=== PATIENT | female | born 1965 | race Caucasian/White ===

== ENCOUNTER → 2018-12-09 17:27 | Outpatient (CLI) | payer BC, SELFPAY ==
--- NOTE | 2018-12-09 | IMM_PTH ---
PATIENT: LAMONT JIMENEZ LOC: [facility] U#:[id number] AGE/SX: 60/F ROOM: RE12/09/[address]: Dr. Kathy Campbell MD : 1965 BED: DIS: SPEC #: [id number] RECD: 12/13/18 14:07 STATUS: MINDY REQ #: [id number] KRISTIAN: 12/09/18 00:[address]: Kathy Campbell DEPT: IMMUNOHISTOCHEMISTRY RECD BY: Jillian Calderon ENTERED: 12/13/18 14:14 SP TYPE: IMMUNO OTHR DR: No Primary Care Phys Tissues: A - Thyroid gland, NOS Procedures: CK19 (add) GAL-3 (add) HBME (add) CD56 (initial) PHYSICIAN & INSTITUTION [place] [address] SPECIMEN INFORMATION: Tissue Source: A - Right thyroid Clinical Info: Thyroid nodules Specimen Number: [id number] CPT code: 27395, 05968 x3 METHODOLOGY: Deparaffinized sections of prefer/formalin-fixed tissue or PAP/DQ stained slides are incubated with monoclonal/polyclonal antibodies/oligonucleotide probes. Localization is made via biotin free immunoperoxidase method. Appropriate controls are performed and reacted as expected. Results on target cell population are indicated in the following table: RESULTS: ANTIBODY / CLONE RESULT Block A CD56 (123C3.D5) positive, focal CK19 (A53-B/A2.26) positive HBME1 (HBME-1) positive, focal GAL3 (9C4) negative These tests were developed and their performance characteristics determined by [facility]. They may not have been cleared or approved by the U.S. Food and Drug Administration. The FDA has determined that such clearance or approval is not necessary. INTERPRETATION: A. Right thyroid, FNA: Atypical follicular cells of undetermined significance. SJ:fede 12/14/18 Case has been reviewed in consultation with Dr. Taylor who concurs with the above diagnosis. IDC:[id number]
--- NOTE | 2018-12-09 09:30 | FLU_PTH ---
PATIENT: LAMONT JIMENEZ LOC: [facility] U#:[id number] AGE/SX: 60/F ROOM: RE12/09/[address]: Dr. Kathy Campbell MD : 1965 BED: DIS: SPEC #: [id number] RECD: 12/09/18 17:07 STATUS: MINDY PRABHA #: [id number] KRISTIAN: 12/09/18 09:[address]: Kathy Campbell DEPT: CYTOLOGY RECD BY: Krzysztof Fine ENTERED: 12/12/18 14:37 SP TYPE: Fluid OTHR DR: No Primary Care Phys Tissues: A - Thyroid gland, NOS B - Thyroid gland, NOS C - Thyroid gland, NOS D - Thyroid gland, NOS Procedures: Special Stain Group II Surgery Specimen Level IV Cytospin Fluid Cytology Other HEADER OPERATION: Ultrasound-guided bilateral thyroid fine needle aspiration PRE-OP DIAGNOSIS: Thyroid nodules TISSUE SUBMITTED: A - Right thyroid FNA for cytology, B - Right thyroid slides x8, C - Left thyroid FNA for cytology, D - Left thyroid slides x8 DIAGNOSIS CYTOLOGY A. Right thyroid nodule fluid, FNA (cytospin and cell block): Atypical follicular cells are noted of undetermined significance. See comment. B. Right thyroid nodule, FNA (smears): Atypical follicular cells are noted of undetermined significance. Adequate for evaluation. C. Left thyroid nodule fluid, FNA (cytospin and cell block): Benign follicular cells noted with H?rthle cell features. D. Left thyroid nodule, FNA (smears): Consistent with benign follicular nodule. Adequate for evaluation. See comment. SJ:rg 12/13/18 COMMENT A.Immunohistochemistry ([id number]) supports the above diagnosis. Correlation with clinical, radiologic findings and appropriate follow up are necessary. This case has been reviewed in consultation with Dr. Taylor who concurs with the above diagnosis. CYTOLOGY STUDY Slides are reviewed. CYTOLOGY GROSS A - Received is 25 ml of cloudy patrick fluid labeled with the patient's name and and designated per the requisition as right thyroid. Submitted for cytology preparation including cell block. B - Received are eight smears labeled with the patient's name and designated per the requisition as right thyroid. Submitted for staining. C - Received is 30 ml of cloudy patrick fluid labeled with the patient's name and and designated per the requisition as left thyroid. Submitted for cytology preparation including cell block. D - Received are eight smears labeled with the patient's name and designated per the requisition as left thyroid. Submitted for staining. 12/12/18 TC:5 CPT: 61793 x2, 34358 x2, 14667 x2
== END ==
PROVIDERS: Referring Provider Surgery; Visit Provider Surgery
DX: E04.1 Nontoxic single thyroid nodule (principal)
CPT/HCPCS: 88108; 88161; 88305; 88313; 88341; 88342

== ENCOUNTER 2019-04-03 15:45 | Observation (INO) | payer BC, SELFPAY ==
--- NOTE | 2019-04-02 21:07 | HP.PCM_ITS ---
History and Physical Date of Admission: 04/03/19 History and Physical examination Jeni with findings of thyroid nodules of uncertain behavior She presented with findings of multinodular thyroid and underwent US guided FNA of right and left thyroid nodules 12/09/18 - ? US 12/02/18 was obtained - Thyroid is homogeneous in echotexture. ?Symmetric Doppler signal to both thyroid lobes without hyperemia. Right thyroid lobe: Size: 4.4 x 1.6 x 1.8 cm (cc by AP by transverse) Nodules: Slightly heterogeneous, nearly isoechoic, minimally vascular 1.5 x 1.6 x 1.3 cm lower pole nodule corresponds to site of patient concern. Left thyroid lobe: Size: 3.9 x 1.5 x 1.8 cm (cc by AP by transverse) Nodules: Hypoechoic, vascular 1 x 0.7 x 1 cm upper pole nodule. Isthmus: Size: 0.3 cm (AP) Nodules: None ? Pathology - A. Right thyroid nodule fluid, FNA (cytospin and cell block): Atypical follicular cells are noted of undetermined significance. B. Right thyroid nodule, FNA (smears): Atypical follicular cells are noted of undetermined significance. Adequate for evaluation. C. Left thyroid nodule fluid, FNA (cytospin and cell block): Benign follicular cells noted with H?rthle cell features. D. Left thyroid nodule, FNA (smears): Consistent with benign follicular nodule. Adequate for evaluation. ? Complains of lump in throat for the past 2 months. Denies new onset hoarseness. States that she has difficulty swallowing occasionally, such as pills. Gets stuck in throat - occurring for the past 1 1/2 months. Denies history of thyroiditis. Denies radiation exposure. Sister had thyroid cancer, mother had surgery for what sounds like goiter ? ? PAST MEDICAL HISTORY ? Agitation 09/22/2017 ? Essential hypertension 05/06/2017 ? Family history of thyroid disease 11/25/2018 ? DEE (generalized anxiety disorder) 09/22/2017 ? Multiple thyroid nodules 12/01/2018 ? US 11/2018 ? PAST SURGICAL HISTORY ? COLONOSCOP W/ OR W/O [facility] ? 09/30/2017 ? Colonoscopy ? PAST SURGICAL HISTORY OF ? 2012 ? Hysterectomy, fibroids ? PAST SURGICAL HISTORY OF ? ? ? lipoma of back ? PAST SURGICAL HISTORY OF ? ? ? time one ? ? Current Outpatient Prescriptions: losartan (COZAAR) 100 mg tablet Take 1 tablet by mouth twice daily. sertraline (ZOLOFT) 100 mg tablet Take 1 tablet by mouth once daily. take one tablet by mouth daily carvedilol (COREG) 3.125 mg tablet Take 1 tablet by mouth twice daily with meals. fluconazole (DIFLUCAN) 150 mg tablet 1 tab by mouth every other day for 3 doses (Patient not taking: Reported on 12/09/2018 ? ? ALLERGIES: Latex; Sulfa (Sulfonamide Antibiotics); Pavel Inhibitors ? PERSONAL HISTORY: Social History Marital status: Spouse name: Years of education: Number of children: Social History Main Topics Smoking status: Never Smoker Smokeless tobacco: Never Used Alcohol use: No Drug use: No ? FAMILY HISTORY ? Heart Failure Mother ? ? Thyroid Mother ?? removed ? Heart Father ?? ablation for arythmia ? Hypertension Father ? ? Thyroid Sister ?? removed ? ? REVIEW OF SYSTEMS: General: The patient denies fatigue, denies weight loss, denies weight gain, denies feeling hot, and denies feelings of cold. Eyes: The patient denies glaucoma, denies eye injury/surgery, wears glasses or contacts. Ear/Nose/Throat: The patient denies allergies, denies hayfever, denies ear infections, and denies bloody noses. Cardiovascular: The patient denies chest pain, denies heart disease, NOTES high blood pressure,denies cardiac stent, denies prior heart attack, denies irregular heart beat, denies high cholesterol, denies poor circulation, denies heart failure, other cardiac issues, denies claudication, denies cold feet, denies peripheral arterial stent. Respiratory: The patient denies tuberculosis, denies pneumonia, denies frequent cough, denies pulmonary embolism, denies shortness of breath, and gigi es coughing up blood. Gastrointestinal: had colonoscopy done by me in 2017, The patient NOTES difficulty swallowing, NOTES acid reflux, denies ulcers, denies vomiting, denies jaundice/hepatitis, denies gallbladder problems, denies black or tarry stools, NOTES hemorrhoids, denies bleeding from rectum, denies diverticulitis, denies constipation, denies diarrhea, denies loss of stool control, and denies hernias. Kidney/Bladder: The patient denies kidney stones, denies urine infections, and denies bloody urine. Skin: The patient denies a history of skin cancer, denies bleeding/ch anging moles, and denies a history of skin rash. Neurologic: The patient denies a history of epilepsy/convulsions, denies headaches, denies head/spinal injuries, and denies stroke/TIA. Psychiatric: The patient denies psychiatric medications, denies depression, and denies voices, denies substance abuse. Endocrine: The patient denies thyroid disorders, denies diabetes, and denies hormonal problems. Hematologic: The patient denies a history of bruising, denies bleeding, and denies anemia, denies blood clots. Infections: The patient denies a history of measles and mumps, denies rheumatic fever, and denies sexually transmitted diseases. Musculoskeletal: The patient denies back pain/injury, NOTES back problems, NOTES sciatica, NOTES knee/foot trouble, NOTES arthritis, or denies gout. ? PHYSICAL EXAMINATION: General: The patient is 53 year old female, well nourished, well hydrated in no acute distress. The patient is oriented to time, place, and person. VITALS: Blood pressure 182/106, pulse 76, temperature 36.9 ?C (98.4 ?F), temperature source Temporal Artery, weight 93.8 kg (206 lb 12.8 oz). Body mass index is 37.82 kg/m?. Head ? Normocephalic. EOM intact with sclera clear and no icterus noted. Wearing glasses. Mouth with mucus membranes moist. Neck - supple with no jugular venous distention noted. Trachea is midline. No carotid bruits noted. No thyroid enlargement or thyroid nodules detected. No masses noted. Patient points to area of concern as the angle of the SCM and clavicle - this is soft tissue and has no relation to the thyroid gland Lungs ? clear to auscultation. Normal breath sounds. No rales/rhonchi/wheezing noted. No labored breathing noted, such as retractions. Heart ? normal S1 and S2 auscultated. No rubs/clicks/murmurs noted. Regular rate. Abdomen ? soft and benign. Normal bowel sounds Extremities ? no calf tenderness noted. No pitting edema noted. Skin ? normal skin integrity. Lymph ? no cervical adenopathy detected, no supraclavicular adenopathy detected, no axillary adenopathy detected Neurological ? gait normal, no focal deficits noted Psych ? calm and appropriate RADIOLOGIC STUDIES: As Noted ? IMPRESSION: right and left thyroid nodules - uncertain behavior ? PLAN: I have discussed the above with the patient. I have explained the thyroid nodules of uncertain behavior diagnosis. I have recommended right thyroid lobectomy. Patient asks about the opposite side. I have explained to her that removal of the entire thyroid would require patient to be on thyroid medications for the rest of her life. She understands this. However, she is concerned about developing thyroid cancer, as her sister had thyroid cancer. She wants to undergo total thyroidectomy. She understands that she will then need to be on thyroid supplementation for the rest of her life. I have counseled the patient as to the risks of surgery, including but not limited to: infection, bleeding, injury to any blood vessels/nerves, scar tissue, postoperative compression of the trachea from bleeding, injury to the laryngeal nerves and their sequelae, injury to the parathyroid glands and their sequelae, cosmetic deformity, complications of anesthesia, etc. - she understands. The patient wishes to proceed. Also she will stay in the hospital overnight. I have answered all questions to the patient?s satisfaction and the patient has no further questions.
[2019-04-03] VITALS (17 sets, daily range): BP systolic 175–209; BP diastolic 91–110; PULSE 82–116; RESP 16–18; TEMP 36.4–37.3; O2SAT 93–99; BMI 38.1
--- NOTE | 2019-04-03 | IMM_PTH ---
PATIENT: LAMONT JIMENEZ LOC: [facility] U#:[id number] AGE/SX: 53/F ROOM: [facility] RE04/03/[address]: Dr. Kathy Campbell MD : 1965 BED: 1 DIS: 04/04/2019 SPEC #: [id number] RECD: 04/05/19 13:16 STATUS: MINDY REQ #: [id number] KRISTIAN: 04/03/19 00:[address]: Kathy Campbell DEPT: IMMUNOHISTOCHEMISTRY RECD BY: Jillian Calderon ENTERED: 04/05/19 13:18 SP TYPE: IMMUNO OTHR DR: MD Dr. Talon Patel DO Tissues: Thyroid gland, NOS Procedures: HBME (initial) CD56 (add) CK19 (add) GAL-3 (add) HBME (add) PHYSICIAN & INSTITUTION [place] [address] SPECIMEN INFORMATION: Tissue Source: Thyroid, total thyroidectomy Clinical Info: Follicular tumor of thyroid gland Specimen Number: [id number] #6 & 7 CPT code: 16567, 63952 x7 METHODOLOGY: Deparaffinized sections of prefer/formalin-fixed tissue or PAP/DQ stained slides are incubated with monoclonal/polyclonal antibodies/oligonucleotide probes. Localization is made via biotin free immunoperoxidase method. Appropriate controls are performed and reacted as expected. Results on target cell population are indicated in the following table: RESULTS: ANTIBODY / CLONE RESULT Block 6 HBME1 (HBME-1) positive in adenomatoid nodules CK19 (A53-B/A2.26) positive GAL3 (9C4) positive CD56 (123C3.D5) positive Block 7 HBME1 (HBME-1) positive in adenomatoid nodules CK19 (A53-B/A2.26) positive GAL3 (9C4) positive CD56 (123C3.D5) positive These tests were developed and their performance characteristics determined by [facility]. They may not have been cleared or approved by the U.S. Food and Drug Administration. The FDA has determined that such clearance or approval is not necessary. INTERPRETATION: Thyroid, total thyroidectomy: The results of immunohistochemistry support the diagnosis of adenomatoid nodules (nodular goiter). CE:fede 04/14/19
--- NOTE | 2019-04-03 10:29 | EKG12_ITS ---
Test Reason : PRE-OP Blood Pressure : / mmHG Vent. Rate : 073 BPM Atrial Rate : 073 BPM P-R Int : 166 ms QRS Dur : 086 ms QT Int : 410 ms P-R-T Axes : 052 002 -21 degrees QTc Int : 451 ms Normal sinus rhythm Nonspecific T wave abnormality Abnormal ECG Confirmed by CHRIS GENTILE, DEMI ([id number]), editor in chief YA ZAVALA ([id number]) on 04/05/2019 12:52:30 PM Referred By: Kathy Campbell Confirmed By:DEMI PEREZ MD
[2019-04-03] MEDS: Cefazolin 2 GM in 0.9% Normal Saline 100 ML IV (11:40)
--- NOTE | 2019-04-03 11:45 | THYROID_PTH ---
PATIENT: LAMONT JIMENEZ LOC: [facility] U#:[id number] AGE/SX: 53/F ROOM: [facility] RE04/03/[address]: Dr. Kathy Campbell MD : 1965 BED: 1 DIS: 04/04/2019 SPEC #: [id number] RECD: 04/04/19 07:58 STATUS: MINDY RE #: [id number] KRISTIAN: 04/03/19 11:[address]: Kathy Campbell DEPT: SURGICAL PATHOLOGY RECD BY: Ralph Solorio ENTERED: 04/04/19 09:10 SP TYPE: THYROID OTHR DR: MD Dr. 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 Two benign parathyroid glands present. CE:fede 04/05/19 COMMENT Immunohistochemistry ([id number]) supports the above diagnosis. The findings were discussed with Dr. Kathy Campbell on 04/14/19. Please see separate [facility] consultation report ([id number]). MICROSCOPIC DESCRIPTION Slides are reviewed. GROSS DESCRIPTION Received in fixative is one container labeled with the patient's name and designated long suture left lobe and short suture right lobe. The specimen consists of a total thyroidectomy specimen consisting of total thyroid and a few disrupted portions of tissue. The entire specimen weighs 10.6 gm. The specimen is oriented as left lobe - long suture, right lobe - short suture. The right lobe measures 5 x 2 x 1.5 cm and left lobe is partly disrupted and measures 4.5 x 2 x 1 cm and the isthmus measures 0.7 x 0.5 x 0.3 cm. The disrupted fragment of the tissue measures in aggregate 3 x 2 x 0.5 cm. The specimen is inked as follows: posterior surface right lobe, left lobe and isthmus - black, anterior surface right lobe - blue, anterior surface left lobe - green and anterior surface isthmus - yellow. Sections of the right lobe reveal a patrick, solid nodule measuring 1.5 x 1 x 1 cm in the middle portion of the lobe. Sections of the left lobe and isthmus do not reveal any mass lesion. The entire specimen is submitted in 12 cassettes as follows: 1 & 2 - detached fragments of tissue, 3 - isthmus, 4-8 - right lobe (4 containing most superior portion and 8 containing most inferior portion), 9-12 - left lobe (9 containing most superior portion and 12 containing most inferior portion). / SJ:fede 04/04/19 TC: CPT: 83990
--- NOTE | 2019-04-03 15:23 | EKG12_ITS ---
Test Reason : POST OP EKG CHANGES Blood Pressure : / mmHG Vent. Rate : 089 BPM Atrial Rate : 089 BPM P-R Int : 148 ms QRS Dur : 090 ms QT Int : 390 ms P-R-T Axes : 054 015 219 degrees QTc Int : 474 ms Normal sinus rhythm T wave abnormality, consider inferior ischemia T wave abnormality, consider anterolateral ischemia Prolonged QT Abnormal ECG When compared with ECG of 03-APR-2019 10:49, MANUAL COMPARISON REQUIRED, DATA IS UNCONFIRMED Confirmed by CELESTE GENTILE, GOMEZ ([id number]), brands editor YA ZAVALA ([id number]) on 04/11/2019 7:16:49 AM Referred By: Kathy Campbell Confirmed By:MANDO ALONSO MD
[2019-04-03] MEDS: Nitroglycerin Oint 1 INCH PACKET 0.5 INCH TRANSDERM. (15:51)
[2019-04-03] MEDS: Aspirin 81 MG TAB.CHEW 324 MG PO (15:51)
[2019-04-03] MEDS: Nitroglycerin (INPATIENT USE) 0.4 MG TAB.SUBL SUBLINGUAL (15:59)
[2019-04-03] MEDS: Morphine 4 MG/ML Syringe IV (16:02)
--- NOTE | 2019-04-03 16:52 | PCM.OPRPT ---
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 Appropriate time out protocol was followed. She was then placed in the supine position on the Operating Room table. She was then placed under GETA. The patient was then positioned with arms tucked and appropriate padding, with neck extension, and in the slightly reverse Trendelenburg position. The neck and upper chest were then prepped with a sterile surgical skin preparation and appropriate sterile surgical drapes were placed. The landmarks were identified and a low cervical collar incision was made with a 15 blade scalpel and carried down to the subcutaneous tissues using Bovie in the electrocautery mode. The platysma was divided along the incision and then flaps were created superiorly to the cricoid cartilage level and inferiorly to the sternal notch. The fascia overlying the strap muscles was then divided along the midline. The left thyroid gland was approached first. The plane between the thyroid gland anterior and the strap muscles posteriorly was then bluntly dissected. Dissection continued layer by layer to identify the inferior pole vessels of the left thyroid gland. The inferior pole vessels were identified. The vessels were ligated with ligaclips and then transected. Of note, the left thyroid gland was nodular, there was some inflammatory changes, especially noted in the plane between the anterior thyroid gland and the strap muscles. The middle thyroid vein was identified and also ligated with ligaclips and then transected. The inferior pole was then bluntly dissected free and the surrounding investiture. The left lobe of the thyroid thus could be retracted medially. Attention was then directed to the superior pole of the thyroid gland. The superior pole vessels were then ligated adjacent to the thyroid lobe in order to prevent damage to the superior laryngeal nerve. The parathyroid gland was identified and care was taken to preserve the blood supply to the parathyroid gland. The thyroid gland was appearing ischemic and shrunk in size and the gland could be further retracted medially. The recurrent laryngeal nerve was identified. Because of the size of the thyroid gland, the nerve was almost embedded within it and careful dissection was required to prevent any injury to it. It is of note that the thyroid appeared to have slight inflammation consistent with thyroiditis type presentation. Also was noted that the surrounding tissues appeared to be more adherent to the thyroid gland than usual. Once the thyroid tissue was free from the attachments to the trachea with the recurrent laryngeal nerve protected and dissection continued. There was a small tongue of thyroid tissue extended superior along the trachea and this was resected en drew with the left thyroid gland. Attention was now directed to the right thyroid gland. The superior pole vessels were taken were dissected out individually and then ligaclips were placed and then the vessels were transected. The thyroid gland was then rotated medially the middle vein was identified and ligated with ligaclips. The inferior pole was then identified and the vessels were ligated with ligaclips. The recurrent laryngeal nerve was then identified along its course and protected from injury. The superior pole was then retracted inferiorly and the pole vessels were ligated with ligaclips and then transected. The thyroid gland was rotated medially and then dissected off the trachea. This was carefully done to avoid any injury to the recurrent laryngeal nerves. The inferior parathyroid gland and the superior parathyroid glands were identified and also protected. The entire thyroid gland was then from the trachea and thus removed from the neck. Because of the shrunken size of the gland, sutures were placed to dominic the right and the left lobe of the thyroid gland. Hemostasis was carefully controlled with electrocautery avoiding any injury to the recurrent laryngeal nerves and the parathyroid glands. Because there is some bleeding still near the area of the recurrent laryngeal nerve , Surgicel was used for hemostasis. A small 10 [place] drain was then placed in the thyroid bed and brought out vis a separate skin incision. The fascia of the strap muscles was then reapproximated along the midline using Vicryl suture. The platysma muscle was then reapproximated in a transverse fashion using interrupted 2-0 Vicryl suture. The skin incision was then reapproximated using 4-0 Monocryl in a running subcuticular fashion. The drain was brought out through the middle portion of the incision and sutured to the skin using nylon suture. The skin closure was reinforced with Dermibond. She was brought to the Recovery Room in stable condition. - Complications none noted - Admit VTE Documentation VTE Present on Admission: Yes VTE Mechan Device Prophylaxis: SCD's
[2019-04-03] MEDS: Lactated Ringers 1,000 ML 75 ML IV (17:44)
--- NOTE | 2019-04-03 18:13 | ECHOD_ITS ---
Reason For Study: Abn EKG Procedure This was a 2D Doppler, Color Flow transthoracic echocardiogram. The exam was of adequate technical quality. Exam performed portable in patient room. Left Ventricle Normal LV size. Mild concentric left ventricular hypertrophy. Left ventricular systolic function is normal. The estimated ejection fraction is 65 %. There is evidence of diastolic dysfunction. No regional wall motion abnormalities noted. Right Ventricle Normal RV size. Normal systolic function. Atria Mild to moderate left atrial enlargement. Normal right atrium. No doppler evidence for ASD. Mitral Valve There is no mitral annular calcification. Normal mitral valve. Mild (1+) mitral valve insufficiency. Tricuspid Valve Normal tricuspid valve. Trivial tricuspid valve insufficiency. Right ventricular systolic pressure estimated to be 22 mmHg. Aortic Valve Trisinus/trileaflet aortic valve. Normal aortic valve. Pulmonic Valve The pulmonic valve is not well visualized. Great Vessels Normal sized aortic root. Pericardium/Pleural No pericardial effusion. MMode/2D Measurements & Calculations LVIDd: 4.2 cm IVSd: 1.3 cm Ao root diam: 3.0 cm LVIDs: 2.1 cm LVPWd: 1.3 cm RVDd: 3.6 cm FS: 49.9 % LAV(MOD-bp): 69.1 ml LA A4 area: 24.5 cm2 LA dimension(2D): 4.2 cm LAV(MOD-bp) Indexed: 35.5 ml/m2 LAV(MOD-sp2): 54.9 ml LAV(MOD-sp4): 82.2 ml RA A4 area: 12.4 cm2 Doppler Measurements & Calculations MV E max gaetano: 94.0 cm/sec Lat Peak E' Gaetano: 6.9 cm/sec Med Peak E' Gaetano: 9.3 cm/sec MV A max gaetano: 92.4 cm/sec E/E' lat: 13.7 E/E' med: 10.1 MV E/A: 1.0 Ao V2 max: 171.2 cm/sec LV V1 max: 150.0 cm/sec PA V2 max: 115.4 cm/sec Ao max P.7 mmHg LV V1 max P.0 mmHg TR max gaetano: 218.4 cm/sec TR max P.1 mmHg Interpretation Summary Left ventricular systolic function is normal. The estimated ejection fraction is 65 %. Mild concentric left ventricular hypertrophy. Mild to moderate left atrial enlargement. Mild (1+) mitral valve insufficiency. Trivial tricuspid valve insufficiency. Right ventricular systolic pressure estimated to be 22 mmHg. There is evidence of diastolic dysfunction. Ordering Physician: Talon Bob Referring Physician: Nazario Barrios Performed By: Naomie Powell RDCS
[2019-04-03] MEDS: Ibuprofen 400 MG Tablet PO (18:19)
--- NOTE | 2019-04-03 18:59 | PCM.PROGNOTE ---
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 Patient's medical problems include hypertension which according to the patient has been poorly controlled recently. Following the patient's thyroidectomy today, an EKG was obtained which showed T wave inversions in leads V3 through V6 and in leads I and II. Patient denies any chest pain, she denies any shortness of breath. Patient states that she was supposed to follow-up last Wednesday with her PCP for possible readjustment of her blood pressure medication but forgot the appointment and did not go. She states that before surgery today, it was noted her blood pressure was elevated. Presently postop patient's systolic blood pressure is around 200, again patient is asymptomatic and has no complaints of any chest pain, nausea, shortness of breath, or headache. - Physical Exam General: Alert, Oriented x3, Cooperative, No apparent distress, Well developed HEENT: Atraumatic, PERRLA, EOMI, Normocephalic Oral: Moist Mucosa Lungs: Clear to auscultation, Normal air movement, No rhonchi, No wheeze, No rales Cardiovascular: Regular rate, Regular Rhythm, Normal S1, Normal S2, No murmurs, No Ectopic Activity, PMI Normal, No rub noted, No Gallop Abdomen: Bowel Sounds Present, Soft, Non Tender, Non-Distended, No hernias noted Extremities: No clubbing, No cyanosis, No edema, Capillary Refill Less than 3 Seconds Skin: No rashes, No breakdown Musculoskeletal: No Tenderness to Palpation of Joints or Extremities Neurological: Cranial nerves II-XII grossly intact, Neuro grossly intact, Sensory exam intact to light touch and pain, Coordination normal Psych/Mental Status: Normal Affect, Appropriate, Alert and oriented to time, place, person, mood and affect Vital Signs Temp Pulse Resp BP Pulse Ox 99.2 F H 106 H 16 209/105 H 93 04/03/19 17:42 04/03/19 17:42 04/03/19 17:42 04/03/19 17:42 04/03/19 17:42 Oxygen Flow Rate (L/min) 2 Oxygen Delivery Method Room Air Weight: 94.6 kg Body Mass Index (BMI) 38.1 Intake and Output for Last 24 Hours 04/01/19 04/02/19 04/03/19 23:59 23:59 23:59 Intake Total 1400 / 1400 Output Total 300 / 300 Balance 1100 / 1100 Laboratory Tests Past 24 Hrs 04/03/19 16:09 Troponin I < 0.015 Medical Necessity - Tobacco Use Smoking Status: Never smoker Tobacco Use: Non-smoker Assessment/Plan #1 inferior and lateral wall T wave inversions-significance is unknown at this time, patient will have a repeat EKG tomorrow morning and her cardiac enzymes will be cycled. Her first troponin was unremarkable. Patient has no history of cardiac disease, she has no family history of occlusive coronary disease, she has no history of diabetes or hyperlipidemia. Her only risk factor seems to be hypertension. I have decided to also order an echocardiogram for tomorrow. #2 uncontrolled hypertension-I have decided to give the patient a one-time dose of Norvasc this evening, she is currently on losartan 100 mg twice daily and Coreg 3.125 mg twice daily as an outpatient-I have decided to increase her Coreg to 12.5 mg twice daily. 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 It is possible that Norvasc may have to be added to her home-going medications tomorrow as well as her increased dose of carvedilol if her blood pressure does not improve. Hospitalist service will follow in the care of this patient. Code Visit Inpatient E&M: 92300 Subs Hosp L3
[2019-04-03] MEDS: amLODIPine 5 MG Tablet PO (19:06)
[2019-04-03] MEDS: Carvedilol 12.5 MG Tablet PO (22:36)
[2019-04-03] MEDS: Losartan Potassium 100 MG Tablet PO (22:36)
[2019-04-03] MEDS: Acetaminophen 325 MG Tablet 650 MG PO (22:41)
[2019-04-04] VITALS (9 sets, daily range): BP systolic 153–186; BP diastolic 70–100; PULSE 78–102; RESP 14–18; TEMP 36.7–37.3; O2SAT 94–95
[2019-04-04] MEDS: Lactated Ringers 1,000 ML 75 ML IV (00:11)
[2019-04-04] MEDS: Acetaminophen 325 MG Tablet 650 MG PO (03:50)
--- NOTE | 2019-04-04 05:55 | EKG12_ITS ---
Test Reason : AM EKG Blood Pressure : / mmHG Vent. Rate : 094 BPM Atrial Rate : 094 BPM P-R Int : 150 ms QRS Dur : 088 ms QT Int : 370 ms P-R-T Axes : 061 020 051 degrees QTc Int : 462 ms Normal sinus rhythm Nonspecific T wave abnormality Prolonged QT Abnormal ECG When compared with ECG of 03-APR-2019 15:40, MANUAL COMPARISON REQUIRED, DATA IS UNCONFIRMED Confirmed by CELESTE GENTILE, GOMEZ ([id number]), video effects editor YA ZAVALA ([id number]) on 04/11/2019 6:57:15 AM Referred By: Kathy Campbell Confirmed By:MANDO ALONSO MD
--- NOTE | 2019-04-04 07:13 | PCM.PN.SRG ---
Subjective: Patient feeling well, has tenderness in the area but does not want to take narcotics Despite order for drain to be changed - it was not done, patient states that the nurses told her that she had never seen a drain like this before and didn't know how to change it. Also, despite serum calcium being ordered this morning, it was not done - Physical Exam General: Alert, Oriented x3 HEENT: Atraumatic Oral: Moist Mucosa Neck: Supple, - - Dressing intact, slight swelling, no erythema, drainage output when I changed the tubing - about 15 ml - serosanguinous Vital Signs Temp Pulse Resp BP Pulse Ox 98.7 F 92 18 162/90 H 94 04/04/19 03:40 04/04/19 03:40 04/04/19 03:40 04/04/19 03:40 04/04/19 03:40 Oxygen Flow Rate (L/min) 2 Oxygen Delivery Method Room Air Weight: 94.6 kg Body Mass Index (BMI) 38.1 Intake and Output for Last 24 Hours 04/02/19 04/03/19 04/04/19 23:59 23:59 23:59 Intake Total 1400 / 1400 1967 Output Total 300 / 300 Balance 1100 / 1100 1967 Laboratory Tests Past 24 Hrs 04/03/19 04/03/19 04/03/19 16:09 19:20 22:05 Troponin I < 0.015 < 0.015 < 0.015 Medical Necessity - Tobacco Use Smoking Status: Never smoker Tobacco Use: Non-smoker Assessment/Plan Impression: status post total thyroidectomy Plan: Will d/c to home, when cleared by internal medicine - patient with elevated blood pressure, EKG changes - ECHO pending start levothyroxine and calcium
--- NOTE | 2019-04-04 07:18 | PCM.DC.GS ---
Discharge Diet: No Restrictions Discharge Activity: Return to Normal Activity, May not drive while taking narcotic pain medications. Call your doctor if your incision/area has: Continuous Slow Oozing, Foul Smelling Discharge Call your doctor if you observe: Fever of 101 or Higher Additional Dressing/Incision Instructions:: Leave dressing in place. Change as instructed prn. sponge bathe only. change drain as instructed twice a day and prn Allergies/Adverse Reactions: Allergies latex Allergy (Verified 03/27/19 09:10) Rash Sulfa (Sulfonamide Antibiotics) Allergy (Verified 03/27/19 09:10) Hives lisinopril Adverse Reaction (Verified 03/27/19 09:10) Other COUGH Medications to take at Discharge Carvedilol [Coreg] 3.125 mg PO BID 03/27/19 Losartan Potassium [Cozaar] 100 mg PO BID 03/27/19 Sertraline HCl [Zoloft] 100 mg PO DAILY 03/27/19 Hydrocodone/Acetaminophen [Victoria 5-325 Tablet] 1 ea PO BID PRN 3 Days #6 tab 04/04/19 Levothyroxine [Synthroid] 150 mcg PO DAILY 30 Days #30 tab 04/04/19 The following prescriptions were given: Hydrocodone/Acetaminophen [Victoria 5-325 Tablet] 1 ea PO BID PRN 3 Days #6 tab PRN Reason: Pain Prescription Printed Levothyroxine [Synthroid] 150 mcg PO DAILY 30 Days #30 tab Prescription Printed Orders to be completed after discharge: 12 Lead EKG [[facility]] Facility: [facility], Location: Cardiovascular Services Primary Care Physician: Nazario Barrios MD [Primary Care Provider] - Test Results: Test results from this visit will be discussed in further detail at your follow-up appointment, if applicable. Please Follow Up With: Kathy Campbell MD - When: tomorrow at 13:00 in the office, thank you
[2019-04-04] MEDS: Calcium Carbonate 500 MG Tablet PO (07:57)
[2019-04-04] MEDS: Sertraline 100 MG Tablet PO (07:57)
[2019-04-04] MEDS: Carvedilol 12.5 MG Tablet PO (07:58)
[2019-04-04] MEDS: HYDROcodone Bitartrate/Apap 5/325 Tablet PO ×2 (07:58→12:51)
[2019-04-04] MEDS: Losartan Potassium 100 MG Tablet PO (07:58)
--- NOTE | 2019-04-04 08:08 | PN_ITS ---
Subjective: Chief complaint: Follow-up after consultation for postoperative EKG changes. Patient seen and examined. No acute events overnight. She denies any chest pain or shortness of breath. Pain at the surgical site is manageable. She has been afebrile. Denies headache, vision change or numbness. Her blood pressure has been elevated, other vital signs are stable. - Physical Exam General: Alert, Oriented x3, Cooperative, No apparent distress HEENT: Atraumatic, PERRLA, EOMI, - - Surgical scar clean and dry. Oral: Moist Mucosa, No Gingival or Mucosal Lesions/ Ulcerations Neck: Supple, No JVD, Negative Carotid Bruits, Trachea Midline, Thyroid Normal Size and Texture Lungs: Clear to auscultation, Normal air movement, No rhonchi, No wheeze, No rales, Diminished Cardiovascular: Regular rate, Regular Rhythm, Normal S1, Normal S2, PMI Normal Abdomen: Bowel Sounds Present, Soft, Non Tender, Non-Distended, No Hepato- splenomegaly Extremities: No clubbing, No cyanosis, No edema Skin: No rashes, No breakdown Lymphatic: No Cervical, Supraclavicular, or Inguinal Adenopathy Neurological: Cranial nerves II-XII grossly intact, Motor Exam 5/5 strength throughout Psych/Mental Status: Normal Affect, Appropriate, Alert and oriented to time, place, person, mood and affect Vital Signs Temp Pulse Resp BP Pulse Ox 98.1 F 81 14 179/100 H 94 04/04/19 07:44 04/04/19 07:44 04/04/19 07:44 04/04/19 07:44 04/04/19 07:44 Oxygen Flow Rate (L/min) 2 Oxygen Delivery Method Room Air Weight: 208 lb 8.917 oz Body Mass Index (BMI) 38.1 Intake and Output for Last 24 Hours 04/02/19 04/03/19 04/04/19 23:59 23:59 23:59 Intake Total 1400 / 1400 1967 Output Total 300 / 300 Balance 1100 / 1100 1967 Laboratory Tests Past 24 Hrs 04/03/19 04/03/19 04/03/19 16:09 19:20 22:05 Calcium Troponin I < 0.015 < 0.015 < 0.015 04/04/19 07:38 Calcium Pending Troponin I Medical Necessity - Tobacco Use Smoking Status: Never smoker Tobacco Use: Non-smoker Assessment/Plan This is a 53 years old female patient underwent total thyroidectomy for thyroid follicular neoplasia and postoperatively, she developed EKG changes and we were consulted for evaluation and management. #1 status post total thyroidectomy: This was done for thyroid follicular neoplasia, postoperative day 1. Started in calcium and levothyroxine. Pain at the surgical site is manageable. She is on ibuprofen and [place]. Her blood pressure elevated, other vitals are stable. General surgery is managing. Plan: Patient can be discharged home if the echocardiogram came back okay and her blood pressure improved, I would recommend stress test as outpatient. #2 EKG changes: Repeat EKG from the reviewed, revealed normal sinus rhythm, nonspecific ST-T wave changes, no acute ischemic changes. Troponin negative x3. Patient denies any chest pain or shortness of breath. 2D echocardiogram ordered to be done today, pending. Recommend stress test as outpatient. #3 hypertension: Uncontrolled, likely because of pain and surgery. Patient is due for Coreg and losartan this morning. Plan to monitor. #4 depression: Continue Zoloft. #5 DVT prophylaxis: SCDs. This note was generated with [employer] dictation software. It may contain incorrect words, spelling, and punctuation that were not noted in checking the note before signing. Code Visit Inpatient E&M: 84034 Subs Hosp L2
[2019-04-04 08:17] LABS: Calcium,Total 8.9 mg/dL (8.5-10.1)
== END 2019-04-04 14:38 | disposition home or self-care (01) ==
LOC: SDC 16:19 → PCU 04-04 07:52 → MS3 04-04 10:00 → PCU 04-04 10:00
PROVIDERS: Anesthesiology; Internal Medicine; Admitting Provider Surgery; Family Provider Family Medicine; PCP Family Medicine; Referring Provider Surgery; Visit Provider Surgery
PROC: (CPT 60240; principal; 2019-04-03 11:30)
DX: E04.2 Nontoxic multinodular goiter (principal); I08.1 Rheumatic disorders of both mitral and tricuspid valves; R94.31 Abnormal electrocardiogram [ECG] [EKG]; I10 Essential (primary) hypertension; Z79.899 Other long term (current) drug therapy; F41.1 Generalized anxiety disorder
CPT/HCPCS: 60240; 36415; 82310; 84484; 88307; 88341; 88342; 93005; 93306; 96360; 96361; 99218; J7120; G0378; G0379

== ENCOUNTER → 2023-03-24 | Outpatient (CLI) | payer BC, SELFPAY ==
--- NOTE | 2023-03-24 | LES_PTH ---
PATIENT: LAMONT JIMENEZ LOC: [facility] U#:[id number] AGE/SX: 57/F ROOM: RE03/24/[address]: Dr. Gurmeet Andre MD : 1965 BED: DIS: 03/24/2023 SPEC #: [id number] RECD: 03/25/23 09:27 STATUS: MINDY RESpencer #: [id number] KRISTIAN: 03/24/23 00:[address]: Gurmeet Andre DEPT: SURGICAL PATHOLOGY RECD BY: Rya Small ENTERED: 03/25/23 09:28 SP TYPE: Lesion OTHR DR: Dr. Nazario Barrios MD [facility] Tissues: Skin of face, NOS Procedures: Surgery Specimen Level IV HEADER OPERATION: Excision lower lip lesion PRE-OP DIAGNOSIS: Benign neoplasm of lip TISSUE SUBMITTED: Lower lip lesion MICROSCOPIC DIAGNOSIS Lower lip lesion, excisional biopsy: Fragments of skin with reactive changes and focal minimal chronic inflammation. Negative for malignancy. See comment. 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 MICROSCOPIC DESCRIPTION Slides are reviewed. GROSS DESCRIPTION Received in fixative is one container labeled with the patient's name and designated lower lip lesion. The specimen consists of two pieces of patrick-white skin measuring 0.6 x 0.5 x 0.2 cm and 0.3 x 0.2 x 0.1 cm. The larger lesion is inked and bisected. The entire specimen is submitted in one cassette. / RENATO:fede 03/25/2023 TC:5 CPT: 49518
== END | disposition home or self-care (01) ==
LOC: LABSPEC 15:40
PROVIDERS: PCP Family Medicine; Referring Provider Otolaryngology; Visit Provider Otolaryngology
DX: K13.0 Diseases of lips (principal)
CPT/HCPCS: 88305